=== PATIENT | male | born 1990 | race African-American/Black ===

== ENCOUNTER 2020-03-05 14:34 | Emergency (ER) | payer OTHER ==
--- NOTE | 2020-03-05 14:56 | ER Document Report ---
ED Medical Screen (RME) - General Chief Complaint: Rectal Pain Stated Complaint: RECTAL PAIN Time Seen by Provider: 03/05/20 14:54 Mode of Arrival: Ambulatory Information source: Patient Notes: 29-year-old male presented to ED for complaint of rectal bleeding with severe pain every time he goes to the bathroom. He states he is having soft stool but he is having bright red blood. He states is probably about a tablespoon every time he has a bowel movement. He does not have any hemorrhoids he states it may be be due to rectal sex. He is alert oriented respirations regular nonlabored speaking in full sentences. I did examine his rectum with chin the RN in the room with me. There was no tears or hemorrhoids they were visible. I will get blood urine and stool sample and have him seen by another provider. He states he does not smoke he does drink socially but does not use any drugs. I have greeted and performed a rapid initial assessment of this patient. A comprehensive ED assessment and evaluation of the patient, analysis of test results and completion of medical decision making process will be conducted by an additional ED providers. - Related Data Allergies/Adverse Reactions: No Known Allergies Allergy (Unverified 03/05/20 14:50) Home Medications: truvada Past Medical History - Social History Chew tobacco use (# tins/day): No Frequency of alcohol use: Occasional Drug Abuse: None Physical Exam - Vital signs Vitals: Temp Pulse Resp BP Pulse Ox 98.6 F 89 18 135/83 H 98 03/05/20 14:39 03/05/20 14:39 03/05/20 14:39 03/05/20 14:39 03/05/20 14:39 Course - Vital Signs Vital signs: Temp Pulse Resp BP Pulse Ox 98.6 F 89 18 135/83 H 98 03/05/20 14:39 03/05/20 14:39 03/05/20 14:39 03/05/20 14:39 03/05/20 14:39
[2020-03-05 16:13] LABS: ABSOLUTE EOSINOPHILS # (AUTO) 0.3 10^3/uL (0.0-0.6); ABSOLUTE LYMPHOCYTES (AUTO) 2.7 10^3/uL (0.5-4.7); BASOPHILS % (AUTO) 0.5 % (0-2); EOSINOPHILS % (AUTO) 4.5 % (0-6); HEMOGLOBIN 16.7 g/dL (13.5-17.0); MEAN CORPUSCULAR HEMOGLOBIN 31.7 pg (27.0-33.4); MEAN CORPUSCULAR HGB CONC 34.8 g/dL (32.0-36.0); MEAN CORPUSCULAR VOLUME 91 fl (80-97); MONOCYTES % (AUTO) 13.5 % (3-13); PLATELET COUNT 303 10^3/uL (150-450); RED BLOOD COUNT 5.26 10^6/uL (4.35-5.55); RED CELL DISTRIBUTION WIDTH 13.1 % (11.5-14.0); SEGMENTED NEUTROPHILS % (AUTO) 43.5 % (42-78); TOTAL CELLS COUNTED % (AUTO) 100 %
[2020-03-05 16:14] LABS: APPEARANCE,URINE CLEAR; BILIRUBIN,URINE NEGATIVE (NEGATIVE); COLOR,URINE YELLOW; GLUCOSE, URINE NEGATIVE (NEGATIVE); KETONES,URINE NEGATIVE (NEGATIVE); LEUKOCYTE ESTERASE,URINE NEGATIVE (NEGATIVE); NITRITE,URINE NEGATIVE (NEGATIVE); PROTEIN,URINE NEGATIVE (NEGATIVE); URINE SPECIFIC GRAVITY 1.015
[2020-03-05 16:33] LABS: ALBUMIN 4.4 g/dL (3.5-5.0); ALKALINE PHOSPHATASE 79 U/L (38-126); ANION GAP 6 (5-19); ASPARTATE AMINO TRANSFERASE 43 U/L (17-59); BILIRUBIN,TOTAL 0.8 mg/dL (0.2-1.3); BLOOD UREA NITROGEN 12 mg/dL (7-20); CALCIUM 9.3 mg/dL (8.4-10.2); CARBON DIOXIDE 28 mmol/L (22-30); CHLORIDE 102 mmol/L (98-107); GLUCOSE 99 mg/dL (75-110); POTASSIUM 4.4 mmol/L (3.6-5.0); TOTAL PROTEIN 8.2 g/dL (6.3-8.2)
[2020-03-05 16:34] LABS: URINE AMPHETAMINES SCREEN NEGATIVE; URINE BARBITURATES SCREEN NEGATIVE; URINE BENZODIAZEPINES SCREEN NEGATIVE; URINE COCAINE SCREEN NEGATIVE; URINE MARIJUANA (THC) SCREEN NEGATIVE; URINE METHADONE SCREEN NEGATIVE; URINE PHENCYCLIDINE SCREEN NEGATIVE
[2020-03-05 17:29] VITALS: BP 129/76
--- NOTE | 2020-03-05 17:30 | ER Document Report ---
ED GI/ - General Chief Complaint: Rectal Bleeding Stated Complaint: RECTAL PAIN Time Seen by Provider: 03/05/20 14:54 Primary Care Provider: FLETCHER CORONA MD [ACTIVE STAFF] - Follow up as needed Mode of Arrival: Ambulatory Information source: Patient Notes: a 29 year old male with complaints of pain when defecating and small amounts of bright red blood per rectum. Patient reports this is been ongoing for the last couple days. He does report that he has anal sex. He states last time he had anal intercourse was at least 2 weeks ago. He denies any rough anal intercourse. He denies any nausea, vomiting, diarrhea, fever or chills. He has never had rectal bleeding in the past. - Related Data Allergies/Adverse Reactions: No Known Allergies Allergy (Unverified 03/05/20 14:50) Home Medications: truvada Past Medical History - General Information source: Patient - Social History Smoking Status: Never Smoker Chew tobacco use (# tins/day): No Frequency of alcohol use: Occasional Drug Abuse: None Family History: None, Reviewed & Not Pertinent Patient has homicidal ideation: No - Medical History Medical History: Negative Surgical Hx: Negative - Immunizations Immunizations up to date: Yes Review of Systems - Review of Systems Constitutional: No symptoms reported EENT: No symptoms reported Cardiovascular: No symptoms reported Respiratory: No symptoms reported Gastrointestinal: Rectal bleeding Genitourinary: No symptoms reported Male Genitourinary: No symptoms reported Musculoskeletal: No symptoms reported Skin: No symptoms reported Hematologic/Lymphatic: No symptoms reported Neurological/Psychological: No symptoms reported Physical Exam - Vital signs Vitals: Temp Pulse Resp BP Pulse Ox 98.6 F 89 18 135/83 H 98 03/05/20 14:39 03/05/20 14:39 03/05/20 14:39 03/05/20 14:39 03/05/20 14:39 - Notes Notes: PHYSICAL EXAMINATION: GENERAL: Well-appearing, well-nourished and in no acute distress. HEAD: Atraumatic, normocephalic. EYES: Pupils equal round and reactive to light, extraocular movements intact, sclera anicteric, conjunctiva are normal. ENT: Nares patent, oropharynx clear without exudates. Moist mucous membranes. NECK: Normal range of motion, supple without lymphadenopathy LUNGS: Breath sounds clear to auscultation bilaterally and equal. No wheezes rales or rhonchi. HEART: Regular rate and rhythm without murmurs ABDOMEN: Soft, nontender, nondistended abdomen. No guarding, no rebound. No masses appreciated. Musculoskeletal: Normal range of motion, no pitting or edema. No cyanosis. Rectum: Normal rectal exam. NEUROLOGICAL: Cranial nerves grossly intact. Normal speech, normal gait. Normal sensory, motor exams PSYCH: Normal mood, normal affect. SKIN: Warm, Dry, normal turgor, no rashes or lesions noted. Course - Re-evaluation Re-evalutation: No external hemorrhoids noted, no abnormality on digital exam. Patient CBC is unremarkable. Hemoglobin is normal. He does not have any active bleeding at the time of my evaluation. He will follow-up with gastroenterology for consideration of a colonoscopy if the bleeding does not subside over the next 1 to 2 days. I also encouraged him to take MiraLAX daily to help ensure that his stools are soft. Patient verbalized understanding and agreement's plan, he agrees to and understands ED return precautions. - Vital Signs Vital signs: Temp Pulse Resp BP Pulse Ox 98.5 F 69 16 129/76 H 100 03/05/20 17:24 03/05/20 17:24 03/05/20 17:24 03/05/20 17:24 03/05/20 17:24 - Laboratory Result Diagrams: 03/05/20 15:40 03/05/20 15:40 Laboratory results interpreted by me: 03/05/20 03/05/20 03/05/20 15:40 15:40 15:40 [place] % (Auto) 13.5 H Sodium 136.0 L ALT 51 H Urine Urobilinogen 4.0 H Discharge - Discharge Clinical Impression: Rectal bleeding Condition: Stable Disposition: HOME, SELF-CARE Additional Instructions: Please have rectal rest for the next 1 to 2 weeks. Take a stool softener such as MiraLAX daily. You can buy this [id number]. If your bleeding does not go away please call the squirrel worker to schedule a follow-up appointment. If your rectal bleeding gets significantly worse please return to the emergency department. Referrals: FLETCHER CORONA MD [ACTIVE STAFF] - Follow up as needed
== END 2020-03-05 17:37 | disposition home or self-care (01) ==
LOC: ER 14:34
DX: K62.5 Hemorrhage of anus and rectum (principal); K62.89 Other specified diseases of anus and rectum; Z79.899 Other long term (current) drug therapy
CPT/HCPCS: 36415; 80053; 80307; 81001; 85025; 99283